=== PATIENT | female | born 1960 | race Caucasian/White ===

== ENCOUNTER → 2018-06-19 | Outpatient (CLI) | payer MEDICAID ==
--- NOTE | 2018-06-19 09:21 | US ---
EXAMINATION TYPE: US abdomen complete DATE OF EXAM: 06/19/2018 COMPARISON: NONE CLINICAL HISTORY: R11.0 Nausea And Vomiting. Patient stated has nausea in AM; on medication for fibro myalgia and formerly taking medication x years for Raynaud's Syndrome. EXAM MEASUREMENTS: Liver Length: 12.2 cm Gallbladder Wall: 0.1 cm CBD: 0.2 cm Spleen: 10.8 cm Right Kidney: 10.2 x 5.7 x 4.5 cm Left Kidney: 9.9 x 4.9 x 4.1 cm Pancreas: wnl Liver: no masses seen Gallbladder: wnl Evidence for sonographic Harrington's sign: no CBD: wnl Spleen: wnl Right Kidney: No hydronephrosis or masses seen Left Kidney: No hydronephrosis or masses seen Upper IVC: wnl Abd Aorta: size is wnl; mild intimal wall thickening noted in ROBERT IMPRESSION: No significant abnormality appreciated.
[2018-06-19 10:01] LABS: Basophils # (A) 0.1 k/uL (0-0.2); Basophils % (A) 1 %; Eosinophils # (A) 0.1 k/uL (0-0.7); Eosinophils % (A) 2 %; HCT 44.6 % (34.0-46.0); HGB 14.3 gm/dL (11.4-16.0); Lymphocytes # (A) 1.2 k/uL (1.0-4.8); Lymphocytes % (A) 21 %; MCH 31.5 pg (25.0-35.0); MCHC 32.1 g/dL (31.0-37.0); MCV 98.1 fL (80.0-100.0); Mean Platelet Volume 6.3; Monocytes # (A) 0.4 k/uL (0-1.0); Monocytes % (A) 7 %; Neutrophils # (A) 3.7 k/uL (1.3-7.7); Neutrophils % (A) 67 %; Platelet Count 294 k/uL (150-450); Poikilocytosis Slight; RBC 4.55 m/uL (3.80-5.40); RDW 14.8 % (11.5-15.5); WBC 5.6 k/uL (3.8-10.6)
[2018-06-19 11:50] LABS: ALT 23 U/L (9-52); AST 23 U/L (14-36); Alkaline Phosphatase 86 U/L (38-126); Amylase 43 U/L (30-110); Anion Gap 5 mmol/L; Blood Urea Nitrogen 15 mg/dL (7-17); Calcium 9.2 mg/dL (8.4-10.2); Carbon Dioxide 30 mmol/L (22-30); Chloride 106 mmol/L (98-107); Glucose 83 mg/dL (74-99); Lipase 49 U/L (23-300); Potassium 4.3 mmol/L (3.5-5.1); Sodium 141 mmol/L (137-145); Total Bilirubin 0.7 mg/dL (0.2-1.3); Total Protein 6.7 g/dL (6.3-8.2)
[2018-06-19 12:07] LABS: T4, Free (Free Thyroxine) 0.78 ng/dL (0.78-2.19)
== END | disposition home or self-care (01) ==
LOC: RADUSWWP 08:00
PROVIDERS: ATTEND Family Medicine
DX: R11.0 Nausea (principal)
CPT/HCPCS: 36415; 76700; 80053; 82150; 83690; 84439; 84443; 84481; 85025

== ENCOUNTER → 2019-02-10 | Outpatient (CLI) | payer MEDICAID ==
[2019-02-10 08:40] LABS: Basophils # (A) 0.1 k/uL (0-0.2); Basophils % (A) 1 %; Eosinophils # (A) 0.2 k/uL (0-0.7); Eosinophils % (A) 3 %; HCT 46.3 % (34.0-46.0); HGB 15.2 gm/dL (11.4-16.0); Lymphocytes # (A) 1.4 k/uL (1.0-4.8); Lymphocytes % (A) 25 %; MCH 31.7 pg (25.0-35.0); MCHC 32.9 g/dL (31.0-37.0); MCV 96.2 fL (80.0-100.0); Mean Platelet Volume 6.3; Monocytes # (A) 0.3 k/uL (0-1.0); Monocytes % (A) 6 %; Neutrophils # (A) 3.5 k/uL (1.3-7.7); Neutrophils % (A) 64 %; Platelet Count 297 k/uL (150-450); Poikilocytosis Slight; RBC 4.81 m/uL (3.80-5.40); RDW 13.8 % (11.5-15.5); WBC 5.6 k/uL (3.8-10.6)
[2019-02-10 17:06] LABS: Parathyroid Hormone Intact 53.5 pg/mL (14.0-72.0)
[2019-02-10 17:28] LABS: Albumin 4.3 g/dL (3.80-4.90); Albumin/Globulin Ratio 2.26 (1.60-3.17); Anion Gap 7.5 mmol/L (4.00-12.00); Calcium 9.1 mg/dL (8.7-10.3); Carbon Dioxide 24.5 mmol/L (21.6-31.8); Globulin 1.9 g/dL (1.6-3.3); LDL Cholesterol,Calculated 136.8 mg/dL (0.0-131.0); Potassium 4.4 mmol/L (3.5-5.5); Total Bilirubin 0.6 mg/dL (0.3-1.2); Total Protein 6.2 g/dL (6.2-8.2); VLDL Calculation 12.2 mg/dL (5.00-40.00)
[2019-02-10 17:32] LABS: Vitamin D 25 Hydroxy 26.8 ng/mL (30.0-100.0)
[2019-02-10 17:36] LABS: T4, Free (Free Thyroxine) 0.9 ng/dL (0.80-1.80)
[2019-02-10 18:16] LABS: Folate, Serum 12.6 ng/mL
== END | disposition home or self-care (01) ==
LOC: LABWHC1 08:04
PROVIDERS: ATTEND Family Medicine
DX: Z00.00 Encounter for general adult medical examination without abnormal findings (principal); R53.83 Other fatigue
CPT/HCPCS: 36415; 80053; 80061; 82306; 82607; 82746; 83970; 84439; 84443; 85025

== ENCOUNTER → 2019-06-17 | Outpatient (CLI) | payer MEDICAID ==
[2019-06-17 07:50] LABS: Basophils # (A) 0.2 k/uL (0-0.2); Basophils % (A) 2 %; Eosinophils # (A) 0.3 k/uL (0-0.7); Eosinophils % (A) 4 %; HCT 40.3 % (34.0-46.0); HGB 13.1 gm/dL (11.4-16.0); Lymphocytes # (A) 1.4 k/uL (1.0-4.8); Lymphocytes % (A) 18 %; MCH 30.6 pg (25.0-35.0); MCHC 32.5 g/dL (31.0-37.0); MCV 94.2 fL (80.0-100.0); Mean Platelet Volume 6.5; Monocytes # (A) 0.4 k/uL (0-1.0); Monocytes % (A) 5 %; Neutrophils # (A) 5.3 k/uL (1.3-7.7); Neutrophils % (A) 70 %; Platelet Count 338 k/uL (150-450); Poikilocytosis Slight; RBC 4.28 m/uL (3.80-5.40); RDW 14.3 % (11.5-15.5); WBC 7.5 k/uL (3.8-10.6)
[2019-06-17 10:53] LABS: African American GFR (CKD) 121.9 (60.0-200.0); Albumin 4.1 g/dL (3.80-4.90); Albumin/Globulin Ratio 1.95 (1.60-3.17); Anion Gap 10.6 mmol/L (4.00-12.00); Calcium 9.2 mg/dL (8.7-10.3); Carbon Dioxide 26.4 mmol/L (21.6-31.8); Chol/HDL Ratio 2.8; Globulin 2.1 g/dL (1.6-3.3); LDL Cholesterol,Calculated 134.8 mg/dL (0.0-131.0); Potassium 4.9 mmol/L (3.5-5.5); Total Bilirubin 0.5 mg/dL (0.2-1.2); Total Protein 6.2 g/dL (6.2-8.2); VLDL Calculation 13.2 mg/dL (5.00-40.00)
== END | disposition home or self-care (01) ==
LOC: LABWHC1 06:57
PROVIDERS: ATTEND Family Medicine
DX: Z00.00 Encounter for general adult medical examination without abnormal findings (principal)
CPT/HCPCS: 36415; 80053; 80061; 84443; 85025

== ENCOUNTER → 2022-08-07 | Outpatient (CLI) | payer MEDICAID ==
[~2022-08-07] MED LIST: DENOSUMAB 60 MG/ML 1 ML SYRINGE SQ NR
[2022-08-07 12:33] VITALS: BP 159/91; PULSE 82; RESP 16; TEMP 98.1
== END | disposition home or self-care (01) ==
LOC: PROCWHC3 12:15
PROVIDERS: ATTEND Internal Medicine
DX: M81.0 Age-related osteoporosis without current pathological fracture (principal)
CPT/HCPCS: 96372; J0897

== ENCOUNTER → 2024-01-21 | Outpatient (CLI) | payer MEDICARE ==
[2024-01-21] MEDS: DENOSUMAB 60 MG/ML 1 ML SYRINGE SQ NR (13:17)
[2024-01-21 13:50] VITALS: BP 125/77; PULSE 83; RESP 16; TEMP 98.2
== END ==
LOC: PROCWHC3 12:55
PROVIDERS: ATTEND Internal Medicine
DX: M81.0 Age-related osteoporosis without current pathological fracture (principal)
CPT/HCPCS: 96372; J0897

== ENCOUNTER → 2024-10-06 | Outpatient (CLI) | payer MEDICARE ==
[2024-10-06 13:43] VITALS: BP 135/83; PULSE 85; RESP 16; TEMP 97.7
[2024-10-06] MEDS: DENOSUMAB 60 MG/ML 1 ML SYRINGE SQ NR (13:46)
== END ==
LOC: PROCWHC3 13:20
PROVIDERS: ATTEND Internal Medicine
DX: M81.0 Age-related osteoporosis without current pathological fracture (principal)
CPT/HCPCS: 96372; J0897